=== PATIENT | female | born 1945 | race Two or more races ===

== ENCOUNTER 2020-06-08 11:58 | Inpatient (IN) | payer MEDICARE, MEDICAID ==
[~2020-06-08] VITALS: Ht 162.6 cm; Wt 49.0 kg
[2020-06-08 12:32] LABS: BASOPHILS % 0.9 % (0.0-2.0); EOSINOPHILS % 1.4 % (0.0-5.0); HEMATOCRIT. 40.7 % (36.0-48.0); HEMOGLOBIN. 13.9 g/dL (12.0-16.0); LYMPHOCYTES % 21.1 % (20.0-50.0); MEAN CORPUSCULAR HEMOGLOBIN 30.6 pg (28.0-32.0); MEAN CORPUSCULAR VOLUME 89.5 fL (81.0-99.0); MEAN PLATELET VOLUME 8.2 fl (7.4-10.4); MONOCYTES % 6.1 % (2.0-8.0); NEUTROPHILS % 70.5 % (40.0-76.0); PLATELET 193 x1000/uL (130-400); RED BLOOD CELL COUNT 4.55 mill/uL (4.2-5.4); RED CELL DISTRIBUTION WIDTH 13.2 % (11.6-14.6)
[2020-06-08 12:39] LABS: CHLORIDE 105 mEq/L (98-107)
[2020-06-08 12:42] LABS: PROTHROMBIN TIME 10.3 sec (9.6-11.0)
[2020-06-08 12:46] LABS: ETHANOL BLOOD < 10 mg/dL; LDL CHOLESTEROL 147 mg/dL (5-100)
[2020-06-08 13:20] LABS: CLARITY URINE CLEAR (CLEAR); COLOR URINE YELLOW (YELLOW); KETONES URINE NEGATIVE (NEGATIVE); LEUKOCYTE ESTERASE URINE NEGATIVE (NEGATIVE); NITRITE URINE POSITIVE (NEGATIVE); OCCULT BLOOD URINE NEGATIVE (NEGATIVE); PH URINE 6.5 (4.5-8.0); PROTEIN URINE NEGATIVE (NEGATIVE); UROBILINOGEN URINE 0.2 E.U./dL (0.2-1.0)
[2020-06-08 13:35] LABS: *AMPHETAMINES SCREEN URINE NEGATIVE (NEGATIVE); *BARBITURATES SCREEN URINE NEGATIVE (NEGATIVE)
[2020-06-08 13:36] LABS: *BENZODIAZEPINES SCREEN URINE PRESUMTIVE POSITIVE (NEGATIVE); *COCAINE SCREEN URINE NEGATIVE (NEGATIVE); CANNABINOID URINE SCREEN NEGATIVE (NEGATIVE); METHADONE URINE SCREEN NEGATIVE (NEGATIVE); OPIATES URINE SCREEN NEGATIVE (NEGATIVE); PHENCYCLIDINE URINE SCREEN NEGATIVE (NEGATIVE)
[2020-06-08] MEDS ORDERED: CEFTRIAXONE 1 G PREMIX 50 ML IV ONE (16:15)
[2020-06-08 20:00] VITALS: BP 132/58
[2020-06-08 21:00] VITALS: BP 134/58
[2020-06-08] MEDS ORDERED: DEXTROSE 50% WATER 50ML SYRINGE IV PRN (22:00)
[2020-06-08] MEDS ORDERED: ACETAMINOPHEN 325MG TABLET PO PRN (22:00)
[2020-06-08] MEDS ORDERED: LEVETIRACETAM 500 MG in SODIUM CHLORIDE 0.9% 100 ML IV SCH (22:15)
[2020-06-08] MEDS: INSULIN LISPRO 100 UNITS/ML SUBCUT SCH (22:45)
[2020-06-08] MEDS: BLOOD SUGAR DIAGNOSTIC STRIP TEST SCH (22:45)
[2020-06-08] MEDS: SODIUM CHLORIDE 0.45% 1,000 ML IV SCH (23:36)
[2020-06-09] VITALS: BP 134/65
[2020-06-09] MEDS: LEVETIRACETAM 500MG PREMIX 100 ML IV SCH ×3 (00:19→21:00)
[2020-06-09 04:00] VITALS: BP 121/56
[2020-06-09] MEDS: INSULIN LISPRO 100 UNITS/ML SUBCUT SCH ×4 (06:03→21:01)
[2020-06-09] MEDS: BLOOD SUGAR DIAGNOSTIC STRIP TEST SCH ×4 (06:04→21:01)
[2020-06-09 08:00] VITALS: BP 129/55
[2020-06-09] MEDS ORDERED: ENOXAPARIN 40MG/0.4ML SYR SUBCUT SCH (09:00)
[2020-06-09] MEDS ORDERED: CEFTRIAXONE 1 G PREMIX 50 ML IV SCH (09:00)
[2020-06-09] MEDS: PANTOPRAZOLE 40MG DR TABLET PO SCH (09:02)
[2020-06-09] MEDS: SODIUM CHLORIDE 0.45% 1,000 ML IV SCH (11:57)
[2020-06-09 12:00] VITALS: BP 121/51
[2020-06-09 16:00] VITALS: BP 103/43
[2020-06-09 16:03] LABS: BASOPHILS % 0.9 % (0.0-2.0); EOSINOPHILS % 1.7 % (0.0-5.0); HEMATOCRIT. 41.2 % (36.0-48.0); HEMOGLOBIN. 14.2 g/dL (12.0-16.0); LYMPHOCYTES % 33.2 % (20.0-50.0); MEAN CORPUSCULAR HEMOGLOBIN 30.7 pg (28.0-32.0); MEAN CORPUSCULAR VOLUME 89.2 fL (81.0-99.0); MEAN PLATELET VOLUME 8.3 fl (7.4-10.4); MONOCYTES % 8.5 % (2.0-8.0); NEUTROPHILS % 55.7 % (40.0-76.0); PLATELET 215 x1000/uL (130-400); RED BLOOD CELL COUNT 4.63 mill/uL (4.2-5.4); RED CELL DISTRIBUTION WIDTH 13.5 % (11.6-14.6)
[2020-06-09 16:08] LABS: CHLORIDE 107 mEq/L (98-107)
[2020-06-09] MEDS: CEFTRIAXONE 1,000 MG in DEXTROSE 5% WATER 50 ML IV SCH (16:08)
[2020-06-09 16:16] LABS: LDL CHOLESTEROL 153 mg/dL (5-100)
[2020-06-09 16:18] LABS: HDL CHOLESTEROL 53 mg/dL (40-59)
[2020-06-09 16:19] LABS: T4 FREE 0.97 ng/dL (0.76-1.46)
[2020-06-09] MEDS ORDERED: DIPHENHYDRAMINE 50MG/ML VIAL IV PRN (16:30)
[2020-06-09] MEDS ORDERED: HYDRALAZINE 20MG/ML VIAL IV PRN (16:30)
[2020-06-09] MEDS ORDERED: LACTULOSE 20G/30ML UDC PO PRN (16:30)
[2020-06-09] MEDS ORDERED: BISACODYL 10MG SUPP PR PRN (16:30)
[2020-06-09] MEDS ORDERED: IPRATROPIUM/ALBUTEROL 0.5-3(2.5)MG/3ML NEB HHN PRN (16:30)
[2020-06-09] MEDS ORDERED: HYDROCODONE/ACETAMINOPHEN 5/325MG TABLET PO PRN (16:30)
[2020-06-09] MEDS: ASPIRIN 81MG TABLET PO SCH (16:47)
[2020-06-09 20:00] VITALS: BP 103/44
[2020-06-09] MEDS ORDERED: ATORVASTATIN CALCIUM 10MG TABLET PO SCH (21:00)
[2020-06-10] VITALS: BP 122/56
[2020-06-10 00:35] LABS: CREATINE KINASE MB FRACTION 2.6 ng/mL (0.5-3.6)
[2020-06-10 04:00] VITALS: BP 135/61
[2020-06-10] MEDS: PANTOPRAZOLE 40MG DR TABLET PO SCH (05:25)
[2020-06-10] MEDS: INSULIN LISPRO 100 UNITS/ML SUBCUT SCH ×4 (05:26→20:36)
[2020-06-10] MEDS: BLOOD SUGAR DIAGNOSTIC STRIP TEST SCH ×4 (05:26→20:36)
[2020-06-10 07:14] LABS: CHLORIDE 109 mEq/L (98-107)
[2020-06-10 07:15] LABS: HEMATOCRIT 42.1 % (36.0-48.0); HEMOGLOBIN 14.4 g/dL (12.0-16.0); MEAN CORPUSCULAR HEMOGLOBIN 30.6 pg (28.0-32.0); MEAN CORPUSCULAR VOLUME 89.6 fL (81.0-99.0); PLATELET 192 x1000/uL (130-400); RED CELL DISTRIBUTION WIDTH 13.5 % (11.6-14.6)
[2020-06-10 07:26] LABS: CREATINE KINASE 53 IU/L (26-192)
[2020-06-10 07:29] LABS: CREATINE KINASE MB FRACTION 2.1 ng/mL (0.5-3.6)
[2020-06-10 08:00] VITALS: BP 145/56
[2020-06-10] MEDS ORDERED: ENOXAPARIN 30MG/0.3ML SYR SUBCUT SCH (09:00)
[2020-06-10] MEDS: LEVETIRACETAM 500MG PREMIX 100 ML IV SCH (09:10)
[2020-06-10] MEDS: ASPIRIN 81MG TABLET PO SCH (09:15)
[2020-06-10] MEDS: SODIUM CHLORIDE 0.45% 1,000 ML IV SCH ×2 (09:16→14:30)
[2020-06-10] MEDS ORDERED: IOHEXOL-350 100 ML BOTTLE ONE (15:24)
[2020-06-10] MEDS: CEFTRIAXONE 1,000 MG in DEXTROSE 5% WATER 50 ML IV SCH (15:27)
[2020-06-10] MEDS ORDERED: APIXABAN 5 MG TABLET PO SCH (18:00)
[2020-06-10 18:38] VITALS: BP 124/54
[2020-06-10] MEDS ORDERED: ATORVASTATIN CALCIUM 40MG TABLET PO SCH (21:00)
== END 2020-06-10 20:55 | disposition home or self-care (01) | DRG 64 ==
LOC: ER 11:58 → EDBEDREQ 15:46 → 8WST 16:20 → EDBEDREQTM 16:33 → EDBEDREQSVC 16:33 → EDBEDREQ 16:33 → ENRESERV 18:41
PROVIDERS: ADMIT Internal Medicine; ATTEND Internal Medicine
DX: I63.9 Cerebral infarction, unspecified (principal); I21.4 Non-ST elevation (NSTEMI) myocardial infarction; J98.11 Atelectasis; N39.0 Urinary tract infection, site not specified; I16.1 Hypertensive emergency; E44.1 Mild protein-calorie malnutrition; Z68.1 Body mass index [BMI] 19.9 or less, adult; G40.909 Epilepsy, unspecified, not intractable, without status epilepticus; E11.65 Type 2 diabetes mellitus with hyperglycemia; I10 Essential (primary) hypertension; E78.5 Hyperlipidemia, unspecified; G90.8 Other disorders of autonomic nervous system; Z79.82 Long term (current) use of aspirin
CPT/HCPCS: 36415; 70496; 70498; 70551; 71045; 80048; 80053; 80061; 80305; 80320; 81003; 82550; 82553; 82962; 83036; 83605; 83721; 84439; 84443; 84484; 85025; 85027; 93005; 93306; 93970; 97162; 99291; J0696; J1650; J1815; J1953; J7060; Q9967; G0480